=== PATIENT | male | born 1955 | race Asian ===

== ENCOUNTER 2016-05-03 11:43 | Outpatient (CLI) | payer OTHER ==
[~2016-05-03 11:43] MED LIST: AMLO2.5T PO; ASA LO-DOSE81 MG PO; FURO40TA93 PO; METF100038 PO; METF500T PO; METO50TA27 PO; POTA20TA4 PO; TERAZOSIN2 MG PO; ZESTRIL40 MG OR
== END 2016-05-03 22:05 | disposition home or self-care (01) ==
LOC: RAD 11:43
DX: M25.551 Pain in right hip (principal)

== ENCOUNTER 2016-05-15 10:26 | Outpatient (CLI) | payer OTHER | END 2016-05-15 12:26 | disposition home or self-care (01) | LOC: CT 10:26 | DX: M25.551 Pain in right hip (principal) ==